=== PATIENT | male | born 1975 | race Caucasian/White ===

== ENCOUNTER → 2016-07-20 13:28 | Outpatient (CLI) | payer OTHER ==
[2016-04-01 16:26] VITALS: BMI 32.5
[~2016-07-20 13:28] MED LIST: XARELTO15 MG PO
== END | disposition home or self-care (01) ==
LOC: D.RAD 13:28
DX: R06.00 Dyspnea, unspecified (principal)

== ENCOUNTER 2019-09-07 15:21 | Emergency (ER) | payer BC ==
[~2019-09-07] VITALS: Ht 190.5 cm; Wt 120.5 kg
[2019-09-07 15:23] VITALS: Ht 190.5 cm; Wt 120.5 kg
[2019-09-07] MEDS ORDERED: ELIQUIS5 MG PO (15:28)
[2019-09-07] MEDS ORDERED: STERAPRED DS 1010 MG PO (15:29)
[2019-09-07] MEDS ORDERED: CLEOCIN HCL300 MG PO (16:51)
[2019-09-07 17:05] VITALS: BP 143/88
== END 2019-09-07 17:05 | disposition home or self-care (01) ==
LOC: D.ER 15:21
DX: S01.02XA Laceration with foreign body of scalp, initial encounter (principal); W22.8XXA Striking against or struck by other objects, initial encounter